=== PATIENT | female | born 1965 | race Caucasian/White ===

== ENCOUNTER 2016-07-22 12:03 | Emergency (ER) | payer OTHER ==
[~2016-07-22] VITALS: Wt 55.6 kg
[~2016-07-22 12:03] MED LIST: IBUP-1542 PO; IBUPROFEN; ORPH100T PO; RANI150T9 PO
[2016-07-22] MEDS ORDERED: NAPR-260 PO (13:22)
[2016-07-22 13:36] VITALS: BP 106/53; PULSE 65; RESP 18; TEMP 97.7
--- NOTE | 2016-07-22 13:56 | ERD ---
DATE OF SERVICE: 07/22/2016 HISTORY OF PRESENT ILLNESS: The patient is a 51-year-old female coming in complaining of right-side d headache secondary to blunt trauma. The patient hit her head 3 days ago on the corner of a door. She did not have loss of consciousness, no vomiting. She took Tylenol with no alleviation of sympt oms. She has mild dizziness, no vomiting. PAST MEDICAL HISTORY: Denies any other medical problems. ALLERGIES TO MEDICATIONS: DENIES. SURGICAL HISTORY: Denies. SOCIAL HISTORY: Denies. REVIEW OF SYSTEMS: A 12-point review of systems was done. Refer to HPI for positives, all other sy stems negative. PHYSICAL EXAMINATION VITAL SIGNS: Temperature is 98.5, pulse 85, blood pressure is 118/58, respiratory rate 20, O2 satur ation 98% on room air. Pain intensity is 6/10. GENERAL: The patient is well-appearing, well-nourished, no acute distress. HEENT: Atraumatic. Conjunctivae are pink. Pupils equal, round, and reactive to light. There is no s cleral icterus. Tympanic membranes clear bilaterally. Oropharynx clear. No nystagmus or photophobia . CHEST: Clear to auscultation bilaterally. There are no rales, wheezes or rhonchi. HEART: Regular rate and rhythm. No murmurs, clicks, rubs or gallops. No S3 or S4. SKIN: There is no apparent rash or petechia. The skin is warm and dry. DIAGNOSIS: Head injury. MEDICAL DECISION MAKING: I have low suspicion for intracranial hemorrhage or mass effect. Low susp icion for a skull fracture, low suspicion for neuro deficit. DISCHARGE: The patient is discharged stable. Patient was given a prescription for naproxen and ruddy d to follow up with primary care within 1 to 2 days for reevaluation. The patient was told if sympt oms progress or worsen to return to the ER. All other questions answered at time of discharge. Dis charge summary given at the time of departure. Patient understood and complied with plan. Dictated By: DAE SCHAEFER/MARIBEL Conf#: [id number] DID#: [id number]
== END 2016-07-22 13:36 | disposition home or self-care (01) ==
LOC: FTE 12:03
DX: S09.90XA Unspecified injury of head, initial encounter (principal); W22.8XXA Striking against or struck by other objects, initial encounter; Y92.9 Unspecified place or not applicable
CPT/HCPCS: 99283

== ENCOUNTER 2017-01-25 11:41 | Emergency (ER) | payer OTHER ==
[~2017-01-25] VITALS: Ht 157.5 cm; Wt 62.0 kg
[~2017-01-25 11:41] MED LIST changes: +NAPR-260 PO
[2017-01-25 11:43] VITALS: Ht 157.5 cm; Wt 62.0 kg
[2017-01-25] MEDS ORDERED: IBUP-1542 PO (23:25)
[2017-01-25] MEDS ORDERED: HYDR-906 PO (23:25)
== END 2017-01-25 18:16 | disposition left against medical advice (07) ==
LOC: FTE 11:41
DX: Z53.21 Procedure and treatment not carried out due to patient leaving prior to being seen by health care provider (principal)

== ENCOUNTER 2017-01-25 18:17 | Emergency (ER) | payer OTHER ==
[~2017-01-25] VITALS: Ht 157.5 cm; Wt 61.5 kg
[2017-01-25 18:27] VITALS: Ht 157.5 cm; Wt 61.5 kg
[2017-01-25] MEDS ORDERED: KETOROLAC 60 MG INJ IM STA (20:46)
--- NOTE | 2017-01-25 20:55 | ERD ---
ER Documentation Chief Complaint Date/Time DATE: 01/25/17 TIME: 20:53 Chief Complaint BILATERAL LEG AND KNEE PAIN X2 WEEKS HPI 51-year-old female presents here in emergency department for complaints of bilateral knee pain for 2 weeks. Patient was complaining of pain after walking for prolonged period of time. Patient noted some swelling on affected area. Throbbing pain, 6/10 scale, is worse upon movement, radiates to lower extremities. Patient denies any redness. Patient denies any fever or chills. She did not take any medications for pain. ROS All systems reviewed and are negative except as per history of present illness. Medications Home Meds Active Scripts Naproxen* (Naprosyn*) 500 Mg Tablet, 500 MG PO BID Y for PAIN AND/OR INFLAMMATION, #30 TAB Prov:ELENA PRETTY PA-C 07/22/16 Orphenadrine Citrate (Norflex) 100 Mg Tablet.sa, 100 MG PO BID, #6 TAB.SA Prov:MAIRA GATES 11/23/15 Ibuprofen* (Motrin*) 600 Mg Tab, 600 MG PO Q8, #10 TAB Prov:MAIRA GATES 11/23/15 Ranitidine Hcl* (Zantac*) 150 Mg Tablet, 150 MG PO BID Y for EPIGASTRIC PAIN, # 30 TAB Prov:MAIRA GATES 11/23/15 Reported Medications [Motrin,Antiinflamat] No Conflict Check 05/14/11 Allergies Allergies: Coded Allergies: No Known Allergy (Unverified , 01/25/17) PMhx/Soc Medical and Surgical Hx: pt denies Medical Hx, pt denies Surgical Hx History of Surgery: No Anesthesia Reaction: No Hx Neurological Disorder: No Hx Respiratory Disorders: No Hx Cardiac Disorders: No Hx Psychiatric Problems: No Hx Miscellaneous Medical Probl: No Hx Alcohol Use: No Hx Substance Use: No Hx Tobacco Use: No FmHx Family History: No coronary disease, No diabetes, No other Physical Exam Vitals Vital Signs Date Time Temp Pulse Resp B/P Pulse Ox O2 Delivery O2 Flow Rate FiO2 01/25/17 18:27 98.8 87 17 107/53 98 Physical Exam GENERAL: The patient is well developed and appropriate for usual state of health, in no apparent distress. CHEST: Clear to auscultation bilaterally. There are no rales, wheezes or rhonchi. HEART: Regular rate and rhythm. No murmurs, clicks, rubs or gallops. No S3 or S4. ABDOMEN: Soft, nontender and nondistended. Good bowel sounds. No rebound or guarding. No gross peritonitis. No gross organomegaly or masses. No Dunn sign or McBurney point tenderness. BACK: No midline or flank tenderness. EXTREMITIES: able to do full range of motion of bilateral knees without any restriction, mild swelling noted.Equal pulses bilaterally. There is no peripheral clubbing, cyanosis or edema. full range of motion of other joints of the body Grossly neurovascularly intact. NEURO: Alert and oriented. Cranial nerves 2-12 intact. Motor strength in all 4 extremities with 5/5 strength. Sensation grossly intact. Normal speech and gait. SKIN: There is no apparent rash or petechia. The skin is warm and dry. HEMATOLOGIC AND LYMPHATIC: There is no evidence of excessive bruising or lymphedema. No gross cervical, axillary, or inguinal lymphadenopathy. Results 24 hrs Current Medications Medications (Trade) Dose Ordered Sig/Lisseth Route PRN Reason Start Time Stop Time Status Last Admin Dose Admin Ketorolac Tromethamine (Toradol) 60 mg ONCE STAT IM 01/25/17 20:46 01/25/17 20:48 DC 01/25/17 20:46 Patient was given medication for pain here in emergency department, after treatment, patient verbalized feeling much better. Patient's pain is improved. PROCEDURE: XR Knee. CLINICAL INDICATION: bilateral knee pain and swelling TECHNIQUE: AP, lateral and sunrise patellar view of the bilateral knees were obtained. The images reviewed on a PACS workstation. COMPARISON: None. FINDINGS: The bones appear intact, with no evidence of fracture, erosion, demineralization , or dislocation. The alignment of the femorotibial and patellofemoral joints appears normal. No joint space narrowing is seen. No evidence of effusion or soft tissue swelling is present. IMPRESSION: Unremarkable examination of the bilateral knees. No visualized fracture or dislocation. RPTAT: HBST .Benigno Echols MD, Date Time Electronically viewed and signed by .Benigno Echols MD, on 01/25/2017 23:19 .T/ CC: KATLYN COELHO NP Procedures/MDM Medical Decision Making: Patient's pain is most likely consistent with a knee sprain. There is no suspicion for neurovascular compromise. Patient has intact sensation and circulation of the affected extremity. There is low suspicion for septic arthritis. Patient does not have any fever. Radiology exams of the affected area does not show any fracture or dislocation. Disposition: Home. Patient is given prescription for ibuprofen for pain, [place] for severe pain. Patient was advised to elevate the affected area and apply ice on affected area. Patient was advised that if symptoms are worse, numbness, tingling, high fever, unable to move joint, worsening symptoms, to return to emergency department immediately. Otherwise, patient is advised to follow up with the primary care doctor in 5-7 days for reevaluation of symptoms. Departure Diagnosis: Primary Impression: Knee pain, bilateral Chronicity: acute Qualified Code: M25.561 - Acute pain of both knees Condition: Stable Patient Instructions: Knee Pain, Uncertain Cause Additional Instructions: Patient is given prescription for ibuprofen for pain, [place] for severe pain. Patient was advised to elevate the affected area and apply ice on affected area. Patient was advised that if symptoms are worse, numbness, tingling, high fever, unable to move joint, worsening symptoms, to return to emergency department immediately. Otherwise, patient is advised to follow up with the primary care doctor in 5-7 days for reevaluation of symptoms. KATLYN COELHO NP Jan 25, 2017 20:55
--- NOTE | 2017-01-25 23:19 | RADRPT ---
PROCEDURE: XR Knee. CLINICAL INDICATION: bilateral knee pain and swelling TECHNIQUE: AP, lateral and sunrise patellar view of the bilateral knees were obtained. The images reviewed on a PACS workstation. COMPARISON: None. FINDINGS: The bones appear intact, with no evidence of fracture, erosion, demineralization, or dislocation. Th e alignment of the femorotibial and patellofemoral joints appears normal. No joint space narrowing i s seen. No evidence of effusion or soft tissue swelling is present. IMPRESSION: Unremarkable examination of the bilateral knees. No visualized fracture or dislocation. RPTAT: HBST .Benigno Echols MD, MD Date Time Electronically viewed and signed by .Benigno Echols MD, MD on 01/25/2017 23:19 .T/
[2017-01-25] MEDS ORDERED: HYDR-906 PO (23:25)
[2017-01-25] MEDS ORDERED: IBUP-1542 PO (23:25)
[2017-01-25 23:36] VITALS: BP 139/60; PULSE 62; RESP 18; TEMP 98.5
== END 2017-01-25 23:37 | disposition home or self-care (01) ==
LOC: FTE 18:17
DX: M25.561 Pain in right knee (principal); M25.562 Pain in left knee
CPT/HCPCS: 73564; 96372; J1885; Z7502

== ENCOUNTER 2017-12-29 20:10 | Emergency (ER) | END 2017-12-29 21:30 | disposition home or self-care (01) ==

== ENCOUNTER 2018-09-28 00:41 | Emergency (ER) | payer OTHER ==
[~2018-09-28] VITALS: Wt 62.3 kg
[~2018-09-28 00:41] MED LIST changes: +FAMO-96 PO; -IBUP-1542 PO; -IBUPROFEN; -NAPR-260 PO; -ORPH100T PO; -RANI150T9 PO
[2018-09-28] MEDS ORDERED: morphine 4 MG/ML VIAL IV STA (03:32)
[2018-09-28] MEDS ORDERED: ONDANSETRON 4 MG INJ IV STA (03:32)
[2018-09-28] MEDS ORDERED: LIDOCAINE/MYLANTA 40 ML BTL PO STA (03:32)
[2018-09-28] MEDS ORDERED: FAMOTIDINE 20 MG INJ IV STA (03:32)
--- NOTE | 2018-09-28 03:37 | ERD ---
ER Documentation Chief Complaint Chief Complaint AP X'S 30 MIN HPI 53-year-old female no significant past medical history presents with postprandial right upper quadrant and epigastric abdominal discomfort that is 8 out of 10, cramping with associated nausea, no vomiting. No chest pain or pressure no exertional symptoms. No diarrhea constipation. Patient with prior history of this in the past but unclear etiology per her report. ROS All systems reviewed and are negative except as per history of present illness. Medications Home Meds Active Scripts Ibuprofen* (Motrin*) 800 Mg Tab, 800 MG PO Q6H PRN for PAIN AND OR ELEVATED TEMP, #30 TAB Prov:ARIANNA LY MD 09/28/18 Famotidine* (Pepcid*) 20 Mg Tablet, 20 MG PO BID PRN for Abdominal pain, #20 TAB Prov:ARIANNA LY MD 12/29/17 Allergies Allergies: Coded Allergies: No Known Allergy (Unverified , 12/29/17) PMhx/Soc History of Surgery: No Anesthesia Reaction: No Hx Neurological Disorder: No Hx Respiratory Disorders: No Hx Cardiac Disorders: No Hx Psychiatric Problems: No Hx Miscellaneous Medical Probl: No Hx Alcohol Use: No Hx Substance Use: No Hx Tobacco Use: No FmHx Family History: No diabetes Physical Exam Vitals Vital Signs Date Temp Pulse Resp B/P (MAP) Pulse Ox O2 O2 Flow FiO2 Time Delivery Rate 09/28/18 97.3 85 18 126/60 100 00:43 (82) Physical Exam General: Slightly uncomfortable Head: Normocephalic, atraumatic. Eyes: Pupils equally reactive, EOM intact ENT: Moist mucous membranes Neck: Supple, no lymphadenopathy Respiratory: Lungs clear bilaterally, no distress Cardiovascular: RRR, no murmurs, rubs, or gallops Abdominal: Soft, reproducible epigastric abdominal discomfort and slightly loca ting to the right upper quadrant, negative Dunn sign, no tenderness to McBurney's point : Deferred MSK: No edema, no unilateral swelling, 5/5 strength Neurologic: Alert and oriented, moving all extremities, normal speech, no focal weakness, no cerebellar signs Skin: No rash Psych: Normal mood Result Diagram: 09/28/18 0348 09/28/18347 Results 24 hrs Laboratory Tests Test 09/28/18 03:48 White Blood Count 9.2 10^3/ul Red Blood Count 4.41 10^6/ul Hemoglobin 13.2 g/dl Hematocrit 39.8 % Mean Corpuscular Volume 90.2 fl Mean Corpuscular Hemoglobin 29.9 pg Mean Corpuscular Hemoglobin Concent 33.2 g/dl Red Cell Distribution Width 12.8 % Platelet Count 306 10^3/UL Mean Platelet Volume 10.7 fl Immature Granulocytes % 0.200 % Neutrophils % 82.3 % Lymphocytes % 9.8 % Monocytes % 6.3 % Eosinophils % 1.0 % Basophils % 0.4 % Nucleated Red Blood Cells % 0.0 /100WBC Immature Granulocytes # 0.020 10^3/ul Neutrophils # 7.6 10^3/ul Lymphocytes # 0.9 10^3/ul Monocytes # 0.6 10^3/ul Eosinophils # 0.1 10^3/ul Basophils # 0.0 10^3/ul Nucleated Red Blood Cells # 0.0 10^3/ul Sodium Level 141 mmol/L Potassium Level 3.4 mmol/L Chloride Level 105 mmol/L Carbon Dioxide Level 29 mmol/L Anion Gap 7 Blood Urea Nitrogen 18 mg/dl Creatinine 0.73 mg/dl Est Glomerular Filtrat Rate mL/min > 60 mL/min Glucose Level 114 mg/dl Calcium Level 9.8 mg/dl Total Bilirubin 0.9 mg/dl Direct Bilirubin 0.00 mg/dl Indirect Bilirubin 0.9 mg/dl Aspartate Amino Transf (AST/SGOT) 523 IU/L Alanine Aminotransferase (ALT/SGPT) 281 IU/L Alkaline Phosphatase 190 IU/L Total Protein 7.7 g/dl Albumin 4.1 g/dl Globulin 3.60 g/dl Albumin/Globulin Ratio 1.13 Lipase 199 U/L Current Medications Medications Dose Sig/Lisseth Start Time Status Last (Trade) Ordered Route PRN Stop Time Admin Dose Reason Admin Morphine 4 mg ONCE STAT 09/28/18 DC 09/28/18 Sulfate IV 03:32 09/28/18 04:10 (morphine) 03:34 Ondansetron 4 mg ONCE STAT 09/28/18 DC 09/28/18 HCl (Zofran IV 03:32 09/28/18 04:11 Inj) 03:34 Famotidine 20 mg ONCE STAT 09/28/18 DC 09/28/18 (Pepcid Iv) IV 03:32 09/28/18 04:11 03:34 40 ml ONCE STAT 09/28/18 DC 09/28/18 Miscellaneous PO 03:32 09/28/18 04:11 Medication 03:34 (Gi Cocktail (2)) Procedures/MDM EKG, MONITORS, & DIAGNOSTIC IMAGING: Ultrasound gallbladder Cholelithiasis LAB INTERPRETATION: I reviewed the laboratory testing and it shows mild transaminitis, normal bilirubin and normal lipase MEDICAL DECISION MAKING: Signs and symptoms consistent with likely GI process such as dyspepsia, peptic ulcer disease, gastritis. Also consider possible hepatobiliary process such as biliary colic, lower concern for acute cholecystitis. No signs or symptoms concerning for cardiac etiology, vascular etiology. Ultrasound imaging and laboratory testing will be appropriate. GI cocktail to be provided. ER COURSE: * The patient has mild transaminitis the pattern is nonobstructive. Ultrasound shows cholelithiasis. Pain is completely resolved. * Low concern for choledocholithiasis. No evidence of acute cholecystitis. The patient's pain is well controlled and she can be safely managed on an outpatient basis. Patient advised to follow-up with a general surgeon, return precautions for fever or uncontrolled pain or jaundice. CONSULTATION: None DISPOSITION PLAN: The patient does not have an identifiable emergent medical condition that warrants inpatient hospitalization at this time. The patient is deemed safe for discharge with outpatient follow-up. We discussed follow up with the patient's primary care doctor within 24 to 48 hours as needed. We also discussed return to the emergency room for worsening symptoms or worsening condition. Outpatient referral: General surgery Discharge Medications: Motrin Departure Diagnosis: Primary Impression: Biliary colic Additional Impressions: Abdominal pain Abdominal location: epigastric Qualified Codes: R10.13 - Epigastric pain Transaminitis Condition: Stable ARIANNA LY MD September 28, 2018 03:37
[2018-09-28] MEDS ORDERED: IBUP800T48 PO (04:54)
[2018-09-28 05:50] VITALS: BP 116/78; PULSE 92; RESP 18
== END 2018-09-28 05:50 | disposition home or self-care (01) ==
LOC: E/R 00:41
DX: K80.20 Calculus of gallbladder without cholecystitis without obstruction (principal); R74.0 Nonspecific elevation of levels of transaminase and lactic acid dehydrogenase [LDH]
CPT/HCPCS: 36415; 76705; 80053; 83690; 85025; 96374; 96375; J2270; J2405; Z7502; Z7610

== ENCOUNTER 2019-01-30 15:56 | Emergency (ER) | payer OTHER ==
[~2019-01-30] VITALS: Ht 154.9 cm; Wt 60.4 kg
[~2019-01-30 15:56] MED LIST changes: +IBUP-1542 PO; +IBUP800T48 PO; +NITR-58 PO
[2019-01-30 16:05] VITALS: Ht 154.9 cm; Wt 60.4 kg
[2019-01-30] MEDS ORDERED: morphine 4 MG/ML VIAL IV STA (18:34)
[2019-01-30] MEDS ORDERED: ONDANSETRON 4 MG INJ IV STA (18:34)
[2019-01-30] MEDS ORDERED: IBUPROFEN 600 MG TAB PO ONE (20:00)
[2019-01-30 20:40] VITALS: BP 111/58; PULSE 73; RESP 19
== END 2019-01-30 20:49 | disposition home or self-care (01) ==
LOC: E/R 15:56
DX: N30.00 Acute cystitis without hematuria (principal); R10.2 Pelvic and perineal pain
CPT/HCPCS: 36415; 74176; 80053; 81001; 84703; 85025; 96374; 96375; J2270; J2405; Z7502; Z7610; 81003